=== PATIENT | male | born 1965 | race Caucasian/White ===

== ENCOUNTER 2021-05-17 17:37 | Emergency (ER) | payer SELFPAY ==
[~2021-05-17] VITALS: Ht 182.9 cm; Wt 68.0 kg
[2021-05-17 17:38] VITALS: BP 146/114
--- NOTE | 2021-05-17 17:50 | NUR ---
PATIENT BIB [place] [employer]. PATIENT EXAMINED BY DR. LAW. PATIENT MEDICALLY CLEARED AND RELEASED IN CUSTODY IN STABLE CONDITION. ORIGINAL PRE-BOOK FORM GIVEN TO OFFICER DARRYL.
== END 2021-05-17 17:50 ==
LOC: MED 17:37
DX: M25.562 Pain in left knee (principal); G89.29 Other chronic pain; Z00.01 Encounter for general adult medical examination with abnormal findings; F17.210 Nicotine dependence, cigarettes, uncomplicated; Z71.6 Tobacco abuse counseling; Z98.890 Other specified postprocedural states
CPT/HCPCS: 99283